=== PATIENT | male | born 1990 | race Caucasian/White ===

== ENCOUNTER 2018-06-29 15:08 | Emergency (ER) | payer OTHER ==
[~2018-06-29] VITALS: Ht 185.4 cm; Wt 74.8 kg
[2018-06-29 15:10] VITALS: BP 132/48
[2018-06-29] MEDS ORDERED: SUBOXONE 8 MG-1 EAC3 PO (15:18)
[2018-06-29] MEDS ORDERED: CLONAZEPAM 1 MG1 M1 PO ×2 (15:18→16:22)
[2018-06-29] MEDS ORDERED: CYMBALTA60 MG PO (15:19)
[2018-06-29] MEDS ORDERED: KEPPRA 500 MG500 M1 PO (15:19)
== END 2018-06-29 16:44 | disposition home or self-care (01) ==
LOC: ER 15:08
DX: G89.4 Chronic pain syndrome (principal); Z76.0 Encounter for issue of repeat prescription

== ENCOUNTER 2018-11-28 14:26 | Emergency (ER) | payer OTHER ==
[~2018-11-28] VITALS: Ht 185.4 cm; Wt 69.4 kg
[~2018-11-28 14:26] MED LIST: CLONAZEPAM 1 MG1 M1 PO; CYMBALTA60 MG PO; KEPPRA 500 MG500 M1 PO; SUBOXONE 8 MG-1 EAC3 PO
[2018-11-28] MEDS ORDERED: ADDERALL 10 MG10 MG PO (14:30)
[2018-11-28] MEDS ORDERED: PRAZOSIN 1 MG CA1 MG PO (14:31)
[2018-11-28] MEDS ORDERED: SUBOXONE 12 MG1 EACH PO (14:31)
[2018-11-28] MEDS ORDERED: ADDERALL 30 MG30 MG PO (14:45)
[2018-11-28 15:23] LABS: ABSOLUTE NEUTROPHILS 3.8 thou/uL (1.4-8.2); BASOPHILS 0.7 % (0.0-2.0); EOSINOPHILS 0.8 % (0.0-3.0); HEMATOCRIT 39.6 % (42.0-52.0); HEMOGLOBIN 13.3 gm/dL (14.0-18.0); LYMPHOCYTES 28.2 % (24.0-44.0); MCH 29.6 pg (26.0-34.0); MCHC 33.6 g/dL (28.0-37.0); MCV 88.2 fL (80.0-100.0); MONOCYTES 4.9 % (1.0-8.0); PLATELET COUNT 202 thou/uL (150-400); POLYS 65.4 % (36.0-66.0); RBC 4.49 mil/uL (4.50-6.00); RDW 13.9 % (10.5-14.5); WBC 5.8 thou/uL (4.0-11.0)
[2018-11-28 15:32] LABS: ANION GAP 5 mmol/L (7-16); BUN 16 mg/dL (7-18); CALCIUM 9.3 mg/dL (8.5-10.1); CHLORIDE 106 mmol/L (98-107); CO2 29 mmol/L (21-32); GLUCOSE 105 mg/dL (74-106); POTASSIUM 4.1 mmol/L (3.5-5.1); SODIUM 140 mmol/L (136-145)
[2018-11-28 15:40] LABS: TROPONIN-I <0.06 ng/mL (<0.06)
[2018-11-28] MEDS ORDERED: CLONAZEPAM 0.50.5 M1 PO (16:24)
[2018-11-28 16:30] VITALS: BP 126/86
--- NOTE | 2018-11-29 08:42 | EKG ---
[place] [address] [facility] [email or web address] [address] ELECTROCARDIOGRAM REPORT Name: LORIE ELLIS Room #: DEP GORDON Cloud#: [id number] Admission: 11/28/18 Attend Phys: Discharge: 11/28/18 Date of : 89 Report #: [id number] THIS REPORT FOR: //name// [facility] ED Test Date: 2018-11-28 Test Time: 14:40:54 Pat Name: LORIE ELLIS Department: Room: Gender: Signals Officer: [facility] : 1990 Requested By: Kasey Rosen Order Number: [id number] MD: Miguel Angel Dozier Measurements Intervals [place] Rate: 98 P: 51 [place]: 147 QRS: 56 QRSD: 101 T: 55 QT: 353 QTc: 451 Interpretive Statements Sinus rhythm Normal tracing No previous ECG available for comparison Electronically Signed On 11-29-2018 8:42:20 CDT by Miguel Angel Dozier [email or web address] <ELECTRONICALLY SIGNED> By: Miguel Angel Dozier MD, [facility] 11/29/18 0842 [id number] 1440 Miguel Angel Dozier MD, FACC /EPI
== END 2018-11-28 16:30 | disposition home or self-care (01) ==
LOC: ER 14:26
PROVIDERS: Emergency Medicine
DX: F41.9 Anxiety disorder, unspecified (principal); R07.89 Other chest pain; F90.9 Attention-deficit hyperactivity disorder, unspecified type; F32.9 Major depressive disorder, single episode, unspecified; Z98.890 Other specified postprocedural states; F17.200 Nicotine dependence, unspecified, uncomplicated